=== PATIENT | female | born 1995 | race American Indian/Alaskan Native ===

== ENCOUNTER 2017-03-20 23:49 | Emergency (ER) | payer MEDICAID ==
[2017-03-21 00:59] LABS: Hematocrit 38.7 % (30.3-42.9); Hemoglobin 12.6 gm/dl (10.1-14.3); Mean Corpuscular HGB Conc 33 % (30-34); Mean Corpuscular Hemoglobin 28 pg (28-32); Mean Corpuscular Volume 85 fl (79-97); Platelet Count 365 K/mm3 (140-440); Red Blood Count 4.55 M/mm3 (3.65-5.03); Red Cell Distribution Width 13.9 % (13.2-15.2); White Blood Count 5.4 K/mm3 (4.5-11.0)
[2017-03-21 01:16] LABS: Anion Gap 20 mmol/L; Blood Urea Nitrogen 8 mg/dL (7-17); Calcium 9.2 mg/dL (8.4-10.2); Carbon Dioxide 24 mmol/L (22-30); Chloride 99.2 mmol/L (98-107); Glucose 84 mg/dL (65-100); Potassium 3.7 mmol/L (3.6-5.0); Sodium 139 mmol/L (137-145)
[2017-03-21 03:31] LABS: Blastocytes % (Manual) 0 %; Diff Status Complete; Platelet Estimate Consistent w Auto; RBC Morphology Normal
--- NOTE | 2017-03-21 03:47 | Emergency Department Report ---
ED Chest Pain HPI - General Chief Complaint: Chest Pain Stated Complaint: CHEST PAIN Time Seen by Provider: 03/21/17 03:47 Source: patient Mode of arrival: Ambulatory Limitations: No Limitations - History of Present Illness Initial Comments: Patient here complaining of chest pain since yesterday. She states that she started having left-sided chest pain at 8-10 that feels sharp does radiate into her back. She states she has shortness of breath with dizziness and sweating. Stated that she felt like her heart was racing. Patient was told in her chest and rocking in triage area. Denies any history of PE or DVT personally or in her family. Last menstrual period was 03/21/2017. Denies taking any over-the- counter medication for pain. Patient is on control and she last had C- section in April 2016. She says she had a history of high blood pressure with her but her blood pressure is stable at present. Denies any recent travel long distance, denies smoking and, denies any recent surgery. Denies any nausea or vomiting. Denies any urinary burning frequency or urgency.Denies any lower back pain. MD Complaint: chest pain -: Last night Onset: during rest Pain Location: left chest Pain Radiation: back Severity: severe Severity scale (0 -10): 8 Quality: aching, sharp Consistency: intermittent Improves With: nothing Worsens With: nothing Context: other (unknown) re: denies: nausea, vomting, diaphoresis, dyspnea, sense of impending doom Other Symptoms: palpitations. denies: cough, fever, syncope, rash, acid taste in mouth, leg swelling, burping Treatments Prior to Arrival: none Aspirin use within the Past 7 Days: (0) No - Related Data On Oral Contraceptives: Yes (Nexplanon) Previous Rx's Medication Instructions Recorded Last Taken Type Naproxen [Naprosyn] 500 mg PO BID PRN #10 tablet 03/21/17 Unknown Rx Allergies Allergy/AdvReac Type Severity Reaction Status Date / Time No Known Allergies Allergy Verified 03/21/17 03:07 Heart Score - HEART Score History: Slightly suspicious EKG: Normal Age: < 45 Risk factors: No known risk factors Troponin: < normal limit HEART Score: 0 - Critical Actions Critical Actions: 0-3 pts:0.9-1.7%risk of adverse cardiac event.Candidate for discharge ED Review of Systems ROS: Stated complaint: CHEST PAIN Other details as noted in HPI Comment: All other systems reviewed and negative Constitutional: denies: chills, diaphoresis, fever, malaise, weakness Respiratory: no symptoms reported Cardiovascular: chest pain, palpitations. denies: edema, syncope Gastrointestinal: denies: abdominal pain, nausea, vomiting, diarrhea, constipation Genitourinary: denies: urgency, dysuria, frequency, hematuria, discharge, abnormal menses, dyspareunia Musculoskeletal: back pain. denies: joint swelling, arthralgia, myalgia Skin: denies: rash Neurological: denies: headache, weakness, numbness, paresthesias, confusion, abnormal gait, vertigo Psychiatric: denies: anxiety ED Past Medical Hx - Past Medical History Previous Medical History?: Yes Hx Hypertension: Yes (states it is ok now no meds) Hx Heart Attack/AMI: No Hx Congestive Heart Failure: No Hx Diabetes: No Hx Deep Vein Thrombosis: No Hx Renal Disease: No Hx Sickle Cell Disease: No Hx Seizures: No Hx Asthma: No Hx COPD: No Hx HIV: No - Surgical History Past Surgical History?: Yes Additional Surgical History: c section, has Nexplanon for the last 9 months - Family History Family history: no significant - Social History Smoking Status: Never Smoker Substance Use Type: None Other Social History: Patient lives with family - Medications Home Medications: Home Medications Medication Instructions Recorded Confirmed Last Taken Type Naproxen [Naprosyn] 500 mg PO BID PRN #10 tablet 03/21/17 Unknown Rx ED Physical Exam - General Limitations: No Limitations General appearance: alert, in no apparent distress - Head Head exam: Present: atraumatic, normocephalic, normal inspection - Eye Eye exam: Present: normal appearance, PERRL, EOMI. Absent: scleral icterus, conjunctival injection, periorbital swelling, periorbital tenderness Pupils: Present: normal accommodation - ENT ENT exam: Present: normal exam, normal orophraynx, mucous membranes moist, TM's normal bilaterally, normal external ear exam - Neck Neck exam: Present: normal inspection, full ROM. Absent: tenderness, meningismus, lymphadenopathy - Respiratory Respiratory exam: Present: normal lung sounds bilaterally, chest wall tenderness (positive left chest wall pain). Absent: respiratory distress, wheezes, rales, rhonchi, stridor, accessory muscle use, decreased breath sounds , prolonged expiratory - Cardiovascular Cardiovascular Exam: Present: regular rate, normal rhythm, normal heart sounds - GI/Abdominal GI/Abdominal exam: Present: soft, normal bowel sounds. Absent: distended, tenderness, guarding, rebound, rigid - Extremities Exam Extremities exam: Present: normal inspection, full ROM, normal capillary refill. Absent: tenderness, pedal edema, joint swelling, calf tenderness - Back Exam Back exam: Present: normal inspection, full ROM. Absent: tenderness, CVA tenderness (R), CVA tenderness (L), muscle spasm, paraspinal tenderness, vertebral tenderness, rash noted - Neurological Exam Neurological exam: Present: alert, oriented X3, normal gait, reflexes normal. Absent: motor sensory deficit - Psychiatric Psychiatric exam: Present: normal affect, normal mood - Skin Skin exam: Present: warm, dry, intact, normal color. Absent: rash ED Course Vital Signs 03/21/17 03/21/17 00:09 03:16 Temperature 98.7 F Pulse Rate 86 79 Respiratory 20 18 Rate Blood Pressure 122/81 Blood Pressure 135/89 [Left] O2 Sat by Pulse 100 99 Oximetry - Reevaluation(s) Reevaluation #1: 03/21/17 03:57 She was stable, troponin is negative, no acute changes in EKG. Chest x-ray stable. based on PERC rule patient is on control so d-dimer ordered. Reevaluation #2: 03/21/17 05:35 Patient stable. Awaiting D dimer Reevaluation #3: 03/21/17 06:23 Patient is stable and no chest pain at present. She says she is ready to go home. D-dimer is negative CHIDI score - Chidi Score Age > 65: (0) No Aspirin use within the Past 7 Days: (0) No 3 or more CAD Risk Factors: (0) No 2 or more Angina events in past 24 hrs: (0) No Known CAD with more than 50% Stenosis: (0) No Elevated Cardiac Markers: (0) No ST Deviation Greater than 0.5mm: (0) No CHIDI Score: 0 ED Medical Decision Making - Lab Data Result diagrams: 03/21/17 00:14 03/21/17 00:14 Lab Results 03/21/17 03/21/17 03/21/17 Range/Units 00:14 00:14 00:18 WBC 5.4 (4.5-11.0) K/mm3 RBC 4.55 (3.65-5.03) M/mm3 Hgb 12.6 (10.1-14.3) gm/dl Hct 38.7 (30.3-42.9) % MCV 85 (79-97) fl MCH 28 (28-32) pg MCHC 33 (30-34) % RDW 13.9 (13.2-15.2) % Plt Count 365 (140-440) K/mm3 Add Manual Diff Complete Total Counted 100 Seg Neuts % (Manual) 35.0 L (40.0-70.0) % Band Neutrophils % 0 % Lymphocytes % (Manual) 56.0 H (13.4-35.0) % Reactive Lymphs % (Man) 0 % Monocytes % (Manual) 5.0 (0.0-7.3) % Eosinophils % (Manual) 2.0 (0.0-4.3) % Basophils % (Manual) 2.0 H (0.0-1.8) % Metamyelocytes % 0 % Myelocytes % 0 % Promyelocytes % 0 % Blast Cells % 0 % Nucleated RBC % Not Reportable Seg Neutrophils # Man 1.9 (1.8-7.7) K/mm3 Band Neutrophils # 0.0 K/mm3 Lymphocytes # (Manual) 3.0 (1.2-5.4) K/mm3 Abs React Lymphs (Man) 0.0 K/mm3 Monocytes # (Manual) 0.3 (0.0-0.8) K/mm3 Eosinophils # (Manual) 0.1 (0.0-0.4) K/mm3 Basophils # (Manual) 0.1 (0.0-0.1) K/mm3 Metamyelocytes # 0.0 K/mm3 Myelocytes # 0.0 K/mm3 Promyelocytes # 0.0 K/mm3 Blast Cells # 0.0 K/mm3 WBC Morphology Not Reportable Hypersegmented Neuts Not Reportable Hyposegmented Neuts Not Reportable Hypogranular Neuts Not Reportable Smudge Cells Not Reportable Toxic Granulation Not Reportable Toxic Vacuolation Not Reportable Dohle Bodies Not Reportable Pelger-Huet Anomaly Not Reportable Mike Rods Not Reportable Platelet Estimate Consistent w auto Clumped Platelets Not Reportable Plt Clumps, EDTA Not Reportable Large Platelets Not Reportable Giant Platelets Not Reportable Platelet Satelliting Not Reportable Plt Morphology Comment Not Reportable RBC Morphology Normal Dimorphic RBCs Not Reportable Polychromasia Not Reportable Hypochromasia Not Reportable Poikilocytosis Not Reportable Anisocytosis Not Reportable Microcytosis Not Reportable Macrocytosis Not Reportable Spherocytes Not Reportable Pappenheimer Bodies Not Reportable Sickle Cells Not Reportable Target Cells Not Reportable Tear Drop Cells Not Reportable Ovalocytes Not Reportable Helmet Cells Not Reportable [place] Bodies Not Reportable Spicer Rings Not Reportable Warren Cells Not Reportable Bite Cells Not Reportable Crenated Cell Not Reportable Elliptocytes Not Reportable Acanthocytes (Spur) Not Reportable Rouleaux Not Reportable Hemoglobin C Crystals Not Reportable Schistocytes Not Reportable Malaria parasites Not Reportable Christian Bodies Not Reportable Hem Pathologist Commnt No Sodium 139 (137-145) mmol/L Potassium 3.7 (3.6-5.0) mmol/L Chloride 99.2 (98-107) mmol/L Carbon Dioxide 24 (22-30) mmol/L Anion Gap 20 mmol/L BUN 8 (7-17) mg/dL Creatinine 0.5 L (0.7-1.2) mg/dL Estimated GFR > 60 ml/min BUN/Creatinine Ratio 16.00 % Glucose 84 (65-100) mg/dL Calcium 9.2 (8.4-10.2) mg/dL Troponin T < 0.010 (0.00-0.029) ng/mL HCG, Qual Negative (Negative) - EKG Data -: EKG Interpreted by Me (by attending physician) EKG shows normal: sinus rhythm Rate: normal (77 bpm) - EKG Data Interpretation: no acute changes - Radiology Data Radiology results: report reviewed Chest x-ray reveals no acute cardiopulmonary processes - Medical Decision Making ED course: This is a 21-year-old female who present to the emergency room with left sided chest pain. She said she had some shortness of breath. Her chest pain had subsided since she's been in the emergency room. She had chest x-ray which revealed no "acute cardiopulmonary findings. PerC rule could not rule out PE because patient is on control therefore suggestion of d-dimer which was within normal limits. The patient EKG without any acute findings. Troponin negative, BMP within normal limits CBC within normal limits except lymphocytes at 56 and his official at 2.0 mildly elevated and neutrophils of 35 which is mildly decreased. Serum was negative urinalysis revealed patient with large amount of blood in her urine but patient is currently on her menses. Based on my physical findings patient with costochondritis and this was related to her and she voiced understanding. Stress with her that she has a low heart score and her CHIDI score was 0. Diagnostic/labs: Chest x-ray negative for cardiopulmonary processes, d-dimer negative, test is negative, BMP stable, CBC is stable and a urinalysis is stable except that patient is on her menses so she has large amount of blood in her urine. Assessment/plan: 1. Atypical chest pain 2. Costochondritis Findings were discussed with patient and patient's CBC discharged home with prescription for naproxen for chest wall inflammation. She voices understanding of diagnosis and treatment plan and to follow up with her primary care physician and if she does not have one she can follow up with [facility]. - Differential Diagnosis ACS, PNA, PE, Costrocondritis Critical care attestation.: If time is entered above; I have spent that time in minutes in the direct care of this critically ill patient, excluding procedure time. ED Disposition Clinical Impression: Costochondritis, acute, Atypical chest pain Disposition: DC-01 TO HOME OR SELFCARE Is pt being admited?: No Does the pt Need Aspirin: No Condition: Stable Instructions: Chest Pain (ED), Costochondritis (ED) Additional Instructions: Please return to the emergency room if he developed chest pain and/or shortness of breath. These follow-up with your primary care physician if you do not have one please follow up with outside Medical Center Increasing her fluid intake Take naproxen as needed for inflammation to chest wall. referral to cardiology for further evaluation. Prescriptions: Naproxen [Naprosyn] 500 mg PO BID PRN #10 tablet PRN Reason: CHEST WALL PAIN Referrals: SHAI GLORIA MD [Primary Care Provider] - 03/22/17 [facility] [Outside] - 03/22/17 KARELY SAPP MD [Staff Physician] - 03/23/17 Forms: Work/School Release Form(ED)
--- NOTE | 2017-03-21 04:15 | XRay Report ---
FINAL REPORT PROCEDURE: XR CHEST ROUTINE 2V TECHNIQUE: PA and lateral chest radiographs were obtained. CPT 87007 HISTORY: CP COMPARISON: No prior studies are available for comparison. FINDINGS: Heart: Normal. Mediastinum/Vessels: Normal. Lungs/Pleural space: Normal. Bony thorax: No acute osseous abnormality. Other: IMPRESSION: Normal examination.
[2017-03-21 05:18] LABS: Bacteria,Urine 1+ /HPF (Negative); Bilirubin,Urine NEG (Negative); Blood,Urine LG (Negative); Ketones,Urine NEG (Negative); Leukocyte Esterase,Urine NEG (Negative); Mucus,Urine 3+ /HPF; Nitrite,Urine NEG (Negative)
[2017-03-21 05:21] LABS: RBC,Urine > 182.0 /HPF (0.0-6.0)
[2017-03-21 06:52] VITALS: BP 109/71
== END 2017-03-21 06:51 | disposition home or self-care (01) ==
LOC: ED 23:49
DX: M94.0 Chondrocostal junction syndrome [Tietze] (principal); I10 Essential (primary) hypertension
CPT/HCPCS: 36415; 71020; 80048; 81001; 84484; 84703; 85007; 85025; 85379; 93005; 93010; 99285

== ENCOUNTER 2017-08-31 16:52 | Emergency (ER) | payer MEDICAID ==
[2017-08-31 17:12] VITALS: BP 119/55
[2017-08-31 17:38] LABS: Hematocrit 38.1 % (30.3-42.9); Hemoglobin 12.6 gm/dl (10.1-14.3); Mean Corpuscular HGB Conc 33 % (30-34); Mean Corpuscular Hemoglobin 28 pg (28-32); Mean Corpuscular Volume 85 fl (79-97); Platelet Count 434 K/mm3 (140-440); Red Blood Count 4.49 M/mm3 (3.65-5.03); Red Cell Distribution Width 13.4 % (13.2-15.2)
[2017-08-31 17:44] LABS: Basophils # (Auto) 0.1 K/mm3 (0.0-0.1); Eosinophils # (Auto) 0.1 K/mm3 (0.0-0.4); Lymphocytes # (Auto) 3.4 K/mm3 (1.2-5.4); Lymphocytes % (Auto) 50.3 % (13.4-35.0); Monocytes # (Auto) 0.2 K/mm3 (0.0-0.8); Monocytes % (Auto) 2.7 % (0.0-7.3)
[2017-08-31 17:56] LABS: Bilirubin,Urine NEG (Negative); Blood,Urine LG (Negative); Color,Urine Yellow (Yellow); Mucus,Urine FEW /HPF; Nitrite,Urine NEG (Negative); Renal Epithelial Cells,Urine 1 /LPF
[2017-08-31 17:58] LABS: RBC,Urine > 182.0 /HPF (0.0-6.0)
--- NOTE | 2017-08-31 21:14 | Ultrasound Report ---
FINAL REPORT PROCEDURE: US OB TRANSVAGINAL and transabdominal TECHNIQUE: Real-time transabdominal and transvaginal sonography was performed. HISTORY: vaginal bleeding COMPARISON: No prior studies are available for comparison. FINDINGS: Uterus measures 10.5 x 3.6 x 5.2 centimeters. Endometrium measures 9 millimeters in thickness. No intrauterine gestational sac is seen. Cervix: Normal. Right Ovary: Normal. Left Ovary: Not visualized. No free fluid or adnexal mass is identified. IMPRESSION: No intrauterine gestational sac is identified. Cannot exclude early gestation or ectopic . Recommend clinical and sonographic follow-up. PROCEDURE: TECHNIQUE: HISTORY: COMPARISON: FINDINGS: IMPRESSION:
== END 2017-09-01 02:18 | disposition left against medical advice (07) ==
LOC: ED 16:52
DX: N93.9 Abnormal uterine and vaginal bleeding, unspecified (principal); Z53.21 Procedure and treatment not carried out due to patient leaving prior to being seen by health care provider
CPT/HCPCS: 36415; 76801; 76817; 81001; 84702; 85025; 86850; 86900; 86901

== ENCOUNTER 2018-01-31 10:36 | Emergency (ER) | payer MEDICAID ==
[2018-01-31 10:43] VITALS: BP 146/81
[2018-01-31 11:03] LABS: Basophils # (Auto) 0.1 K/mm3 (0.0-0.1); Basophils % (Auto) 1.2 % (0.0-1.8); Eosinophils % (Auto) 0.6 % (0.0-4.3); Hemoglobin 12.8 gm/dl (10.1-14.3); Lymphocytes # (Auto) 2.3 K/mm3 (1.2-5.4); Lymphocytes % (Auto) 52.8 % (13.4-35.0); Mean Corpuscular HGB Conc 33 % (30-34); Mean Corpuscular Hemoglobin 28 pg (28-32); Mean Corpuscular Volume 86 fl (79-97); Monocytes # (Auto) 0.2 K/mm3 (0.0-0.8); Monocytes % (Auto) 3.8 % (0.0-7.3); Platelet Count 344 K/mm3 (140-440); Red Blood Count 4.55 M/mm3 (3.65-5.03); Red Cell Distribution Width 13.1 % (13.2-15.2)
[2018-01-31 11:29] LABS: BUN/Creatinine Ratio 10; Blood Urea Nitrogen 7 mg/dL (7-17); Calcium 9.7 mg/dL (8.4-10.2); Hemolysis Index 3
== END 2018-01-31 11:05 | disposition left against medical advice (07) ==
LOC: ED 10:36
DX: R06.4 Hyperventilation (principal); Z53.21 Procedure and treatment not carried out due to patient leaving prior to being seen by health care provider
CPT/HCPCS: 36415; 80048; 85025; G0480; 80320

== ENCOUNTER 2018-02-09 15:10 | Outpatient (CLI) | payer OTHER | END 2018-02-09 15:11 | disposition home or self-care (01) | LOC: LABHHL 15:10 | PROVIDERS: ATTEND Surgery | DX: N63.20 Unspecified lump in the left breast, unspecified quadrant (principal); F17.210 Nicotine dependence, cigarettes, uncomplicated; D64.9 Anemia, unspecified; Z82.49 Family history of ischemic heart disease and other diseases of the circulatory system; Z83.3 Family history of diabetes mellitus | CPT/HCPCS: 88305 ==

== ENCOUNTER 2018-12-27 17:09 | Outpatient (CLI) | payer MEDICAID ==
[2018-12-27] MEDS ORDERED: LACTATED RINGERS 500 ML IV ONE (18:25)
[2018-12-27 19:00] LABS: Bacteria,Urine 4+ /HPF (Negative); Bilirubin,Urine NEG (Negative); Blood,Urine NEG (Negative); Color,Urine Yellow (Yellow); Mucus,Urine FEW /HPF
[2018-12-27] MEDS ORDERED: ROCEPHIN IM ONE (20:01)
[2018-12-27] MEDS ORDERED: XYLOCAINE 1% MPF 5 mL INFILTRATI ONE (20:01)
[2018-12-27] MEDS ORDERED: XYLOCAINE TOPICAL 2% 30ML TP ONE (20:11)
[2018-12-27 21:07] VITALS: BP 109/65
== END 2018-12-27 21:17 | disposition home or self-care (01) ==
LOC: TRG 17:09
PROVIDERS: ATTEND Obstetrics & Gynecology
DX: O26.893 Other specified pregnancy related conditions, third trimester (principal); R10.2 Pelvic and perineal pain; R39.89 Other symptoms and signs involving the genitourinary system; Z3A.29 29 weeks gestation of pregnancy
CPT/HCPCS: 59025; 81001; 87086; 96372; J0696

== ENCOUNTER 2019-02-16 12:56 | Outpatient (CLI) | payer MEDICAID ==
[2019-02-16 15:33] VITALS: BP 104/66
[2019-02-16] MEDS ORDERED: LACTATED RINGERS 500 ML IV ONE (15:34)
[2019-02-16 16:33] LABS: Bacteria,Urine 2+ /HPF (Negative); Bilirubin,Urine NEG (Negative); Blood,Urine NEG (Negative); Color,Urine Yellow (Yellow); Mucus,Urine FEW /HPF; Protein,Urine <15 mg/dL mg/dL (Negative); Urobilinogen,Urine < 2.0 mg/dL (<2.0)
[2019-02-16] MEDS ORDERED: LACTATED RINGERS 1,000 ML IV ONE (16:35)
== END 2019-02-16 19:17 | disposition home or self-care (01) ==
LOC: TRG 12:56
PROVIDERS: ATTEND Obstetrics & Gynecology
DX: O60.03 Preterm labor without delivery, third trimester (principal); Z3A.36 36 weeks gestation of pregnancy; Z87.891 Personal history of nicotine dependence
CPT/HCPCS: 81001; 96360; J7120

== ENCOUNTER 2019-03-06 05:05 | Inpatient (IN) | payer MEDICAID ==
[2019-03-06] MEDS ORDERED: BICITRA PO ONE (06:07)
[2019-03-06] MEDS ORDERED: REGLAN IV ONE (06:07)
[2019-03-06] MEDS ORDERED: PEPCID IV ONE ×2 (06:07→08:57)
[2019-03-06] MEDS: LACTATED RINGERS 1,000 ML IV SCH ×2 (06:23→07:00)
[2019-03-06 06:34] LABS: Basophils # (Auto) 0.1 K/mm3 (0.0-0.1); Basophils % (Auto) 1.3 % (0.0-1.8); Eosinophils % (Auto) 0.9 % (0.0-4.3); Hematocrit 32.7 % (30.3-42.9); Lymphocytes # (Auto) 1.9 K/mm3 (1.2-5.4); Lymphocytes % (Auto) 39.6 % (13.4-35.0); Mean Corpuscular HGB Conc 31 % (30-34); Mean Corpuscular Volume 84 fl (79-97); Monocytes # (Auto) 0.4 K/mm3 (0.0-0.8); Monocytes % (Auto) 7.8 % (0.0-7.3); Platelet Count 409 K/mm3 (140-440); Red Blood Count 3.88 M/mm3 (3.65-5.03)
[2019-03-06 06:39] LABS: Red Cell Distribution Width 22.3 % (13.2-15.2)
[2019-03-06] MEDS ORDERED: ANCEF/STERILE WATER 2 GM/20 ML 2 GM/20 ML SYRINGE IV NR (07:00)
[2019-03-06] MEDS ORDERED: PITOCin/NS 20 UNIT/1000ML DRIP 20 UNITS/1,000 ML BAG IV SCH ×2 (07:00→11:00)
[2019-03-06] MEDS ORDERED: ceFAZolin 2 GM in NACL 0.9% 100 ML IV ONE (07:18)
--- NOTE | 2019-03-06 07:31 | Anesthesia Consultation ---
Anesthesia Consult and Med Hx Date of service: 03/06/19 - Airway Anesthetic Teeth Evaluation: Good ROM Head & Neck: Adequate Mental/Hyoid Distance: Adequate Mallampati Class: Class II Intubation Access Assessment: Good - Pulmonary Exam CTA: Yes - Cardiac Exam Cardiac Exam: RRR - Pre-Operative Health Status ASA Pre-Surgery Classification: ASA2 Proposed Anesthetic Plan: Spinal - Pulmonary Hx Asthma: No COPD: No Hx Pneumonia: No - Cardiovascular System Hx Hypertension: No Hx Coronary Artery Disease: No Hx Heart Attack/AMI: No Hx Angina: No Hx Cardia Arrhythmia: No Hx Heart Murmur: No - Central Nervous System Hx Seizures: No Hx Psychiatric Problems: No - Endocrine Hx Renal Disease: No Hx End Stage Renal Disease: No Hx Hypothyroidism: No Hx Hyperthyroidism: No - Hematic Hx Anemia: No Hx Sickle Cell Disease: No - Other Systems Hx Alcohol Use: No
--- NOTE | 2019-03-06 07:32 | Anesthesia Day of Surgery ---
Anesthesia Day of Surgery - Day of Surgery Patient Examined: Yes Patient H&P Reviewed: Yes Patient is NPO: Yes
--- NOTE | 2019-03-06 07:47 | History and Physical Report ---
History of Present Illness Date of examination: 03/06/19 Date of admission: 03/06/19 05:05 Chief complaint: scheduled repeat History of present illness: This is a 23 yo at 39 weeks here for repeat . She is a patient of [facility]. She sustained obesity during this . 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 Patient denies any outbreaks. GBS neg` Past History Past Medical History: no pertinent history Past Surgical History: section [employer] History: herpes Family/Genetic History: none Social history: single. denies: smoking, alcohol abuse, prescription drug abuse - Obstetrical History Expected Date of Delivery: 03/13/19 Actual Gestation: 39 Week(s) 0 Day(s) : 3 Para: 1 Hx # Term Pregnancies: 1 Number of Pregnancies: 0 Spontaneous Abortions: 1 Induced : 0 Number of Living Children: 1 Medications and Allergies Allergies Allergy/AdvReac Type Severity Reaction Status Date / Time aloe vera AdvReac Severe Itching Verified 02/16/19 15:34 Home Medications Medication Instructions Recorded Confirmed Last Taken Type valACYclovir [Valtrex] 500 mg PO BID 12/27/18 12/27/18 12/27/18 History Active Meds: Active Medications Oxytocin/Sodium Chloride (Pitocin/Ns 20 Unit/1000ml Drip) 20 units in 1,000 mls @ 0 mls/hr IV TITR MANNY Lactated Ringer's (Lactated Ringers) 1,000 mls @ 2,250 mls/hr IV PREOP MANNY Stop: 03/07/19 07:27 Last Admin: 03/06/19 07:00 Dose: 2,250 mls/hr Documented by: Review of Systems All systems: negative - Vital Signs Vital signs: Vital Signs Pulse BP 93 H 114/64 03/06/19 05:48 03/06/19 05:48 Temp Pulse Resp BP Pulse Ox 93 H 114/64 03/06/19 05:48 03/06/19 05:48 - Physical Exam Breasts: Positive: normal Cardiovascular: Regular rate, Normal S1 Lungs: Positive: Clear to auscultation, Normal air movement Abdomen: Positive: normal appearance, soft, normal bowel sounds. Negative: distention, tenderness, guarding Genitourinary (Female): Positive: normal external genitalia, normal perenium Vagina: Positive: normal moisture Uterus: Positive: normal size, enlarged, normal contour Anus/Rectum: Positive: normal perianal skin Extremities: Positive: normal. Negative: tenderness Deep Tendon Reflex Grade: Normal +2 - Obstetrical FHR: category 1 Results Result Diagrams: 03/06/19 05:45 Abnormal lab results 03/06/19 Range/Units 05:45 Hgb 10.0 L (10.1-14.3) gm/dl MCH 26 L (28-32) pg RDW 22.3 H (13.2-15.2) % Lymph % (Auto) 39.6 H (13.4-35.0) % [place] % (Auto) 7.8 H (0.0-7.3) % All other labs normal. Assessment and Plan A/P HD#1 IUP 39+0 weeks GBS neg obesity hx of previous csec schedueld repeat discussed r/b/a of repeat which include but not limited to bleeding infection, damage to pelvic and non pelvic will proceed with repeat
[2019-03-06] MEDS ORDERED: DEXMEDETOMIDINE IV ONE (08:04)
[2019-03-06] MEDS ORDERED: BICITRA ONE (08:56)
[2019-03-06] MEDS ORDERED: REGLAN ONE ×2 (08:56→08:57)
[2019-03-06] MEDS ORDERED: ZOFRAN ONE (09:30)
[2019-03-06] MEDS ORDERED: NACL 0.9% IR ONE (09:35)
[2019-03-06] MEDS ORDERED: WATER FOR IRRIG STERILE IR ONE (09:35)
[2019-03-06] MEDS ORDERED: ANUCORT-HC PR PRN (10:00)
[2019-03-06] MEDS ORDERED: TORADOL ONE (10:11)
[2019-03-06] MEDS ORDERED: NARCAN 0.4 MG/1 ML IV PRN ×3 (10:27→11:00)
[2019-03-06] MEDS ORDERED: PHENERGAN PR PRN ×2 (10:38→11:00)
[2019-03-06] MEDS ORDERED: ZOFRAN IV PRN ×2 (10:38→11:00)
--- NOTE | 2019-03-06 10:38 | Post Anesthesia Evaluation ---
- Post Anesthesia Evaluation Patient Participated: Yes Airway Patent: Yes Stable Respiratory Function: Yes Nausea/Vomiting: No Temp > 96.8F: Yes Pain Manageable: Yes Adequeate Hydration: Yes Anesthesia Complications: No Block Receding Appropriately: Yes Patient on Ventilator: No
--- NOTE | 2019-03-06 10:42 | Operative Report ---
Operative Report Operative Report: DATE OF OPERATION: 03/06/19 PREOPERATIVE DIAGNOSES: 1. Prior section. 2. Declines vaginal after . 3. A 39 weeks gestation. 4. Obesity POSTOPERATIVE DIAGNOSES: 1.-4 huey 5. nuchal cord x1 6. scar tissue OPERATION PERFORMED: Repeat low transverse ; removal of scar tissue . SURGEON: Iqra Camarillo MD ANESTHESIA: Spinal. ESTIMATED BLOOD LOSS: 300 mL. FINDINGS: A viable male weighing 7 pounds 10 oz Apgars of 6 and 9. COMPLICATIONS: None. DISPOSITION: Stable. DESCRIPTION OF OPERATION: After informed consent was obtained, the patient was brought back to the operative suite where adequate spinal anesthesia was obtained. The patient was then placed in the dorsal supine position and prepped and draped in the sterile fashion. A repeat Pfannenstiel skin incision was made with a blade and carried down through the subcutaneous tissues to the fascia, which was extended in the transverse fascia with Bonds scissors. The fascial incision was then dissected off the rectus muscles both bluntly and sharply. The rectus muscle was in the midline. The peritoneum was entered bluntly. The peritoneal incision was then extended both superiorly and inferiorly with good visualization of the underlying bowel and bladder. The bladder blade was placed, and the vesicouterine fascia was incised to create a bladder flap in a low transverse position. This was developed digitally. A low transverse uterine incision was made with the blade and carried down through the layers of the uterus until membranes bulged through the incision. The uterine incision was then extended digitally. Hand was placed inside the pelvis, and the head was brought up out of the pelvis and delivered atraumatically with gentle fundal pressure. Prior to the head being delivered, actually through the skin, the sound of the baby starting to cry was noted. After the head was delivered, the mouth and nares were aggressively bulb suctioned. Remainder of the infant was delivered, and the was passed to the awaiting nursing staff for additional care. Cord was doubly clamped and cut and cord blood was obtained. The placenta was then manually extracted, and the uterus was exteriorized. The uterus was cleaned of remaining clot. The uterine incision was readily identified and closed in two layers, first one with running locking followed by second imbricating layer of 0 Vicryl. The vesicouterine fascia was then reapproximated with 2-0 Vicryl. The adnexa were within normal limits. The uterus was placed back inside the pelvis. Copious irrigation and inspection of the incision was satisfactory. The peritoneum was then closed with 2-0 Vicryl in a running fashion. The fascia was closed with 1 Vicryl from one angle to the next. Subcutaneous tissues were copiously irrigated, and final bleeders were cauterized. The incision was then reapproximated with Francisco needle
[2019-03-06] MEDS ORDERED: SODIUM CHLORIDE FLUSH SYRINGE 10 ML IV NR (11:00)
[2019-03-06] MEDS ORDERED: PHENERGAN PO PRN (11:00)
[2019-03-06] MEDS ORDERED: TUCKS PAD TP PRN (11:00)
[2019-03-06] MEDS ORDERED: D5LR 1,000 ML IV SCH (11:00)
[2019-03-06] MEDS ORDERED: MORPHINE IV PRN ×2 (11:00)
[2019-03-06] MEDS ORDERED: MYLICON PO PRN (11:00)
[2019-03-06] MEDS ORDERED: SODIUM CHLORIDE FLUSH SYRINGE 10 ML IV PRN (11:00)
[2019-03-06] MEDS ORDERED: TORADOL IV PRN (11:00)
[2019-03-06] MEDS ORDERED: LANSINOH TP PRN (11:00)
[2019-03-06] MEDS ORDERED: TYLENOL PR PRN (11:00)
[2019-03-06] MEDS: TORADOL IV PRN ×2 (12:58→18:36)
[2019-03-06] MEDS ORDERED: BOOSTRIX IM ONE (18:42)
[2019-03-06] MEDS ORDERED: MILK OF MAGNESIA PO PRN (22:00)
[2019-03-06] MEDS ORDERED: SENOKOT PO PRN (22:00)
[2019-03-06 23:02] LABS: Hematocrit 27.2 % (30.3-42.9); Hemoglobin 8.9 gm/dl (10.1-14.3)
[2019-03-07] MEDS: TORADOL IV PRN (00:14)
[2019-03-07] MEDS: PERCOCET 5/325 PO PRN (01:25)
[2019-03-07] MEDS: IBUPROFEN PO PRN ×3 (01:25→17:13)
[2019-03-07] MEDS: NORCO 5/325 PO PRN ×3 (04:21→17:14)
[2019-03-07] MEDS ORDERED: BOOSTRIX IM ONE (06:00)
--- NOTE | 2019-03-07 08:36 | Progress Note ---
Assessment and Plan A: POD1 s/p rLTCS Anemia Vital signs stable P: Continue current care. Anticipate discharge to home on POD3 Initiate iron supplementation Subjective - Subjective Date of service: 03/07/19 Principal diagnosis: Post-op Interval history: Pt is a 23 yo on post-op day 1 s/p repeat LTCS. Patient reports: appetite normal, voiding normally, pain well controlled, flatus, ambulating normally : doing well, nursing well, bottle feeding Objective - Vital Signs Latest vital signs: Vital Signs Temp Pulse Resp BP BP Pulse Ox 03/07/19 04:21 18 03/07/19 01:25 18 03/07/19 00:14 18 03/07/19 00:00 98.6 F 77 18 114/78 03/06/19 19:47 98.0 F 18 123/74 03/06/19 18:36 20 03/06/19 16:36 97.6 F 68 16 132/78 99 03/06/19 14:15 20 03/06/19 13:28 20 03/06/19 12:58 20 03/06/19 11:55 97.3 F L 61 20 124/71 99 03/06/19 11:15 57 L 18 100/59 03/06/19 11:00 60 16 101/55 98 03/06/19 10:45 70 18 94/53 96 03/06/19 10:40 79 17 103/53 96 03/06/19 10:36 97.7 F 77 17 102/52 96 Intake and Output 03/06/19 03/07/19 03/07/19 23:59 07:59 15:59 Intake Total 300 300 Output Total 2000 Balance -1700 300 Intake: Intake, Free Water 300 300 Output: Urine 2000 Indwelling Catheter 1600 Void 400 Other: Total, Output Amount 400 # Voids Void 1 - Exam Cardiovascular: Present: Regular rate, Normal S1, Normal S2, No murmurs Lungs: Present: Clear to auscultation, Normal air movement Abdomen: Present: normal appearance, soft, normal bowel sounds Uterus: Present: normal, firm, fundal height at umbilicus Extremities: Present: normal Incision: Present: normal, dry, intact - Labs Labs: Abnormal lab results 03/06/19 Range/Units 22:53 Hgb 8.9 L (10.1-14.3) gm/dl Hct 27.2 L (30.3-42.9) %
[2019-03-07] MEDS ORDERED: M-M-R II VACCINE SUB-Q ONE (11:00)
[2019-03-07] MEDS: PRENATAL VITAMIN PO SCH (11:21)
[2019-03-07] MEDS: FEOSOL PO SCH (11:21)
[2019-03-08] MEDS: NORCO 5/325 PO PRN ×2 (06:22→06:23)
--- NOTE | 2019-03-08 08:05 | Progress Note ---
Assessment and Plan A: POD2 s/p rLTCS Anemia Vital signs stable P: Continue current care. Anticipate discharge to home on POD3 Continue iron supplementation Subjective - Subjective Principal diagnosis: Post-op Interval history: Pt is a 23 yo on post-op day 2 s/p repeat LTCS. She reports a current genital HSV outbreak. Patient reports: appetite normal, voiding normally, pain well controlled, flatus, ambulating normally [place]: doing well, nursing well, bottle feeding (supplementary) Objective - Vital Signs Latest vital signs: Vital Signs Temp Pulse Resp BP BP Pulse Ox 03/08/19 06:23 18 03/08/19 06:22 18 03/08/19 00:30 98.7 F 64 19 102/78 03/07/19 16:02 98.3 F 90 18 108/62 97 03/07/19 08:35 97.8 F 73 18 103/53 98 Intake and Output 03/07/19 03/08/19 03/08/19 23:59 07:59 15:59 Other: # Voids Void 1 - Exam Cardiovascular: Present: Regular rate, Normal S1, Normal S2, No murmurs Lungs: Present: Clear to auscultation, Normal air movement Abdomen: Present: normal appearance, soft, normal bowel sounds Uterus: Present: normal, firm, fundal height below umbilicus Extremities: Present: normal Incision: Present: normal, dry, intact
--- NOTE | 2019-03-08 08:08 | Discharge Summary ---
Providers - Providers Date of Admission: 03/06/19 05:05 Date of discharge: 03/09/19 Attending physician: ZITA MARTINEZ Primary care physician: ZITA MARTINEZ Hospitalization Reason for admission: active labor Delivery: Procedure: repeat low transverse Episiotomy: none Incision: normal, dry, intact Other procedures: none complications: none Discharge diagnosis: IUP at term delivered Condition at discharge: Good Disposition: DC-01 TO HOME OR SELFCARE Plan - Discharge Medications Prescriptions: Ferrous Sulfate [Feosol 325 MG tab] 325 mg PO BID #30 tablet Ibuprofen [Motrin] 600 mg PO Q8H PRN #30 tablet PRN Reason: Pain oxyCODONE /ACETAMINOPHEN [Percocet 5/325] 1 tab PO Q6HR PRN #30 tablet PRN Reason: Pain - Provider Discharge Summary Activity: routine, no sex for 6 weeks, no heavy lifting 4 weeks, no strenuous exercise Diet: routine Instructions: routine Additional instructions: [] Smoking cessation referral if applicable(refer to patient education folder for contact #) [] Refer to [facility]'s [facility] Booklet Call your doctor immediately for: * Fever > 100.5 * Heavy vaginal bleeding ( >1 pad per hour) * Severe persistent headache * Shortness of breath * Reddened, hot, painful area to leg or breast * Drainage or odor from incision. * Keep incision clean and dry at all times and follow doctor's instructions regarding bathing/showering - Follow up plan Follow up: ZITA MARTINEZ MD [Primary Care Provider] - 14 Days (Call to schedule appointment.)
[2019-03-08] MEDS ORDERED: XYLOCAINE TOPICAL 2% 5ML TP PRN (09:00)
[2019-03-08] MEDS: FEOSOL PO SCH (10:05)
[2019-03-08] MEDS: PRENATAL VITAMIN PO SCH (10:05)
--- NOTE | 2019-03-08 12:37 | Event Note ---
Date: 03/08/19 S: Patient is experiencing chest pain since 1145. Feels like pressure on sternum. Some difficulty breathing. Reports not feeling well, denies nausea, arm pain, jaw pain, parasthesias, cough. O: BP 126/80, heart rate 80 bpm, SpO2 98% Alert and oriented x4, visibly uncomfortable. No paleness or cyanosis Lungs CTAB Breasts filling Normal S1/S2, no murmur/click/rub/gallop. Bilateral radial pulses 2+. Trace bilateral lower extremity edema, no masses or areas of redness/warmth on legs. Abdomen soft, fundus firm 1fb above umbilicus, physiologically tender to palpation Oral mucosa pink and moist A: 23 yo post-op day 2 s/p repeat LTCS Likely heartburn, rule out PE Vital signs stable ECG: normal sinus rhythm, rate 92 bpm no abnormalities noted P: Administer Zantac and GI cocktail Chest xray and CT angiogram Monitor closely
[2019-03-08] MEDS ORDERED: ALUM-MAG HYDROX-SIMETH 200-200-20MG/5ML PO PRN (13:00)
--- NOTE | 2019-03-08 13:57 | XRay Report ---
CHEST 2 VIEWS INDICATION / CLINICAL INFORMATION: chest pain. COMPARISON: 03/21/2017 FINDINGS: SUPPORT DEVICES: None. HEART / MEDIASTINUM: No significant abnormality. LUNGS / PLEURA: No significant pulmonary or pleural abnormality. No pneumothorax. ADDITIONAL FINDINGS: No significant additional findings. IMPRESSION: 1. No acute findings. Signer Name: Oswaldo Laura MD Signed: 03/08/2019 1:53 PM Workstation Name: [id number]
[2019-03-08] MEDS ORDERED: LIDOCAINE VISCOUS 2% PO ONE (14:00)
[2019-03-08] MEDS ORDERED: LIDOCAINE VISCOUS 2% PO PRN (16:00)
[2019-03-08] MEDS: VALTREX PO SCH ×2 (16:14→23:20)
[2019-03-08] MEDS: PEPCID PO SCH ×2 (16:15→23:14)
[2019-03-08 19:27] LABS: Alanine Aminotransferase 13 units/L (7-56); Albumin 3.1 g/dL (3.9-5); BUN/Creatinine Ratio 6; Blood Urea Nitrogen 3 mg/dL (7-17); Hemolysis Index 1
[2019-03-08] MEDS: IBUPROFEN PO PRN (20:44)
[2019-03-08] MEDS: PERCOCET 5/325 PO PRN (20:44)
[2019-03-08] MEDS ORDERED: XYLOCAINE TOPICAL 2% 5ML TP ONE (20:59)
--- NOTE | 2019-03-08 22:58 | Cat Scan Report ---
CTA CHEST WITH IV CONTRAST INDICATION / CLINICAL INFORMATION: chest pain after surgery. TECHNIQUE: Axial CT images were obtained through the chest after injection of IV contrast. 3 plane MIP and/or 3D reconstructions were produced. All CT scans at this location are performed using CT dose reduction f or ALARA by means of automated exposure control. COMPARISON: None available. FINDINGS: PULMONARY ARTERIES: No pulmonary emboli. THORACIC AORTA: No significant abnormality. HEART: No significant abnormality. CORONARY ARTERIES: No significant calcification. PLEURA: No pleural effusion. No pneumothorax. LYMPH NODES: No significant adenopathy. LUNGS: No acute air space or interstitial disease. ADDITIONAL FINDINGS: None. UPPER ABDOMEN: No acute findings. SKELETAL STRUCTURES: No significant osseous abnormality. IMPRESSION: 1. No CT evidence for pulmonary embolism. 2. No acute findings. Signer Name: Dom Balderrama MD Signed: 03/08/2019 10:54 PM Workstation Name: [id number]
[2019-03-09] MEDS: NORCO 5/325 PO PRN (08:45)
[2019-03-09] MEDS: IBUPROFEN PO PRN (08:51)
[2019-03-09 09:24] VITALS: BP 136/82
[2019-03-09] MEDS: PRENATAL VITAMIN PO SCH (11:47)
[2019-03-09] MEDS: PEPCID PO SCH (11:47)
[2019-03-09] MEDS: FEOSOL PO SCH (11:47)
[2019-03-09] MEDS: VALTREX PO SCH (11:51)
== END 2019-03-09 15:00 | disposition home or self-care (01) | DRG 765 ==
LOC: APU 05:05 → OB 12:03
PROVIDERS: ADMIT Obstetrics & Gynecology; ATTEND Obstetrics & Gynecology
PROC: 10D00Z1 Extraction of Products of Conception, Low, Open Approach (ICD-10-PCS; principal; 2019-03-06)
PROC: 3E0234Z Introduction of Serum, Toxoid and Vaccine into Muscle, Percutaneous Approach (ICD-10-PCS; 2019-03-07)
DX: O34.211 Maternal care for low transverse scar from previous cesarean delivery (principal); O98.52 Other viral diseases complicating childbirth; O75.82 Onset (spontaneous) of labor after 37 completed weeks of gestation but before 39 completed weeks gestation, with delivery by (planned) cesarean section; O69.81X0 Labor and delivery complicated by cord around neck, without compression, not applicable or unspecified; B00.9 Herpesviral infection, unspecified; O99.214 Obesity complicating childbirth; E66.9 Obesity, unspecified; O99.02 Anemia complicating childbirth; D64.9 Anemia, unspecified; Z37.0 Single live birth; Z3A.39 39 weeks gestation of pregnancy; Z79.899 Other long term (current) drug therapy; Z23 Encounter for immunization
CPT/HCPCS: 36415; 71046; 71275; 80053; 85014; 85018; 85025; 86850; 86900; 86901; 90471; 90715; 93005; 93010; G0378; C9250; J0690; J1885; J2270; J2405; J2590; J2765; J3490; J7120; J7121; Q9967

== ENCOUNTER 2020-04-08 17:26 | Outpatient (CLI) | payer MEDICAID ==
[2020-04-08] MEDS ORDERED: LACTATED RINGERS 1,000 ML IV SCH (19:00)
[2020-04-08 19:23] LABS: Hematocrit 31.3 % (30.3-42.9); Hemoglobin 10.6 gm/dl (10.1-14.3); Mean Corpuscular HGB Conc 34 % (30-34); Mean Corpuscular Volume 82 fl (79-97); Platelet Count 285 K/mm3 (140-440); Red Blood Count 3.79 M/mm3 (3.65-5.03); Red Cell Distribution Width 14.9 % (13.2-15.2)
[2020-04-08 19:24] LABS: Bacteria,Urine 2+ /HPF (Negative); Bilirubin,Urine NEG (Negative); Blood,Urine NEG (Negative); Color,Urine Yellow (Yellow); Protein,Urine <15 mg/dL mg/dL (Negative)
[2020-04-08 19:33] LABS: Alanine Aminotransferase 9 units/L (7-56)
[2020-04-08 19:37] VITALS: BP 113/64
== END 2020-04-08 19:51 | disposition home or self-care (01) ==
LOC: TRG 17:26 → APU 17:28 → TRG 19:51
PROVIDERS: ATTEND Obstetrics & Gynecology
DX: O26.893 Other specified pregnancy related conditions, third trimester (principal); R51 Headache; M79.89 Other specified soft tissue disorders; O47.03 False labor before 37 completed weeks of gestation, third trimester; Z3A.33 33 weeks gestation of pregnancy
CPT/HCPCS: 36415; 59025; 81001; 82565; 83615; 84450; 84460; 84550; 85027; 96360; 96361; J7120

== ENCOUNTER 2020-05-22 00:37 | Inpatient (IN) | payer MEDICAID ==
[2020-05-22] MEDS ORDERED: LACTATED RINGERS 1,000 ML IV ONE (01:54)
[2020-05-22 03:51] LABS: Basophils % (Auto) 0.4 % (0.0-1.8); Eosinophils # (Auto) 0.1 K/mm3 (0.0-0.4); Hematocrit 31.3 % (30.3-42.9); Hemoglobin 10.1 gm/dl (10.1-14.3); Lymphocytes # (Auto) 2.4 K/mm3 (1.2-5.4); Lymphocytes % (Auto) 31.5 % (13.4-35.0); Mean Corpuscular HGB Conc 32 % (30-34); Mean Corpuscular Volume 83 fl (79-97); Monocytes # (Auto) 0.4 K/mm3 (0.0-0.8); Monocytes % (Auto) 5.7 % (0.0-7.3); Platelet Count 307 K/mm3 (140-440); Red Blood Count 3.76 M/mm3 (3.65-5.03); Red Cell Distribution Width 17.1 % (13.2-15.2)
[2020-05-22] MEDS ORDERED: LACTATED RINGERS 1,000 ML ONE (05:24)
[2020-05-22] MEDS ORDERED: BICITRA ORAL LIQD 30ML PO ONE (05:27)
[2020-05-22] MEDS ORDERED: METOCLOPRAMIDE 10 MG/2 ML INJ IV ONE (05:27)
[2020-05-22] MEDS ORDERED: FAMOTIDINE 20 MG/2 ML INJ IV ONE (05:27)
--- NOTE | 2020-05-22 05:27 | History and Physical Report ---
History of Present Illness Date of examination: 05/22/20 Date of admission: May 22, 2020 Chief complaint: Contractions History of present illness: 24-year-old -0-2-2 at 40+0 weeks who presents with irregular uterine contractions. The patient has a history of a previous delivery x2. She had been scheduled for a repeat delivery however she declined and had decided to pursue a trial of labor despite being counseled to the contrary. The risk involved of attempting a trial of labor after 2 previous C-sections was extensively explained to the patient. The patient was given the option of proceeding with a repeat delivery or transferring her care to another provider. The patient has elected to proceed with a repeat delivery. She denies leakage of fluid or vaginal bleeding. A biophysical profile was performed with findings of 8 out of 8. 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 Social history: single - Obstetrical History Expected Date of Delivery: 05/22/20 Actual Gestation: 40 Week(s) 0 Day(s) : 5 Para: 2 Hx # Term Pregnancies: 2 Number of Pregnancies: 0 Spontaneous Abortions: 2 Induced : 0 Number of Living Children: 2 Medications and Allergies Allergies Allergy/AdvReac Type Severity Reaction Status Date / Time aloe vera AdvReac Severe Itching Verified 02/16/19 15:34 Home Medications Medication Instructions Recorded Confirmed Last Taken Type valACYclovir [Valtrex] 500 mg PO BID 12/27/18 12/27/18 12/27/18 History Ferrous Sulfate [Feosol 325 MG tab] 325 mg PO BID #30 tablet 03/06/19 Unknown Rx Ibuprofen [Motrin] 600 mg PO Q8H PRN #30 tablet 03/06/19 Unknown Rx oxyCODONE /ACETAMINOPHEN [Percocet 1 tab PO Q6HR PRN #30 tablet 03/06/19 Unknown Rx 5/325] Review of Systems All systems: negative Genitourinary: contractions, no vaginal bleeding, no leakage of fluid - Vital Signs Vital signs: Vital Signs Pulse Pulse Ox 108 H 98 05/22/20 01:18 05/22/20 01:18 Temp Pulse Resp BP Pulse Ox 97.4 F L 90 18 111/67 100 05/22/20 01:21 05/22/20 05:19 05/22/20 01:21 05/22/20 01:21 05/22/20 05:19 - Physical Exam Breasts: Positive: deferred Cardiovascular: Regular rate Lungs: Positive: Clear to auscultation Abdomen: Positive: normal appearance Results Result Diagrams: 05/22/20 02:40 Abnormal lab results 05/22/20 Range/Units 02:40 MCH 27 L (28-32) pg RDW 17.1 H (13.2-15.2) % All other labs normal. Assessment and Plan - Patient Problems (1) Previous delivery affecting Current Visit: Yes Status: Acute Plan to address problem: Will proceed with a repeat delivery and other indicated procedures
--- NOTE | 2020-05-22 05:34 | Ultrasound Report ---
US OB BPP wo non-stress, US OB limited INDICATION / CLINICAL INFORMATION: wellbeing. COMPARISON: None available. FINDINGS: Single, viable intrauterine in cephalic presentation. heart rate 144. Amniotic fluid volume is normal, with a fluid index of 15 cm. Biophysical profile: breathing movement: 2 movement: 2 posture and tone: 2 Amniotic fluid volume: 2 Total biophysical profile score: 8/8. IMPRESSION: 1. Viable, term intrauterine , with normal amniotic fluid volume. 2. Biophysical profile score of 8/8. Signer Name: Wisam Caraballo MD Signed: 05/22/2020 5:29 AM Workstation Name: [id number]
[2020-05-22] MEDS ORDERED: MORPHINE 4 MG/1 ML INJ IV PRN (05:38)
[2020-05-22] MEDS ORDERED: MAGNESIUM HYDROXIDE (MOM) ORAL LIQD UDC PO PRN (05:38)
[2020-05-22] MEDS ORDERED: KETOROLAC 30 MG/1 ML INJ IV PRN (05:38)
[2020-05-22] MEDS ORDERED: ACETAMINOPHEN 325 MG TAB PO PRN (05:38)
[2020-05-22] MEDS ORDERED: NALOXONE 0.4 MG/1 ML INJ IV PRN ×2 (05:38→06:07)
[2020-05-22] MEDS ORDERED: WITCH HAZEL/ GLYCERIN PAD TP PRN (05:38)
[2020-05-22] MEDS ORDERED: LANOLIN/ZINC/DIMETHICONE (LANSINOH) 7 GM TP PRN (05:38)
[2020-05-22] MEDS ORDERED: ONDANSETRON 4 MG/2 ML INJ IV PRN ×2 (05:38→06:07)
[2020-05-22] MEDS ORDERED: ceFAZolin/Water 2 GM/20 ML 2 GM/20 ML SYRINGE IV NR (06:00)
[2020-05-22] MEDS ORDERED: LACTATED RINGERS 1,000 ML IV SCH (06:00)
--- NOTE | 2020-05-22 06:04 | Anesthesia Day of Surgery ---
Anesthesia Day of Surgery - Day of Surgery Patient Examined: Yes Patient H&P Reviewed: Yes Patient is NPO: Yes Beta Blockers: No Cardiac Clearance: No Pulmonary Clearance: No Hernán's Test: N/A
[2020-05-22] MEDS ORDERED: HYDROmorphone 1 MG/1 ML INJ IV PRN (06:07)
--- NOTE | 2020-05-22 06:07 | Anesthesia Consultation ---
Anesthesia Consult and Med Hx Date of service: 05/22/20 - Airway Anesthetic Teeth Evaluation: Good ROM Head & Neck: Adequate Mental/Hyoid Distance: Adequate Mallampati Class: Class II Intubation Access Assessment: Good - Pulmonary Exam CTA: Yes - Cardiac Exam Cardiac Exam: RRR - Pre-Operative Health Status ASA Pre-Surgery Classification: ASA2 Proposed Anesthetic Plan: Spinal - Pre-Anesthesia Comment Pre-Anesthesia Comments: csectionx2 - Pulmonary Hx Smoking: Yes (stop last year) Hx Asthma: No Hx Respiratory Symptoms: No SOB: No COPD: No Home Oxygen Therapy: No Hx Pneumonia: No Hx Sleep Apnea: No - Cardiovascular System Hx Hypertension: No Hx Coronary Artery Disease: No Hx Heart Attack/AMI: No Hx Angina: No Hx Percutaneous Transluminal Coronary Angioplasty (PTCA): No Hx Cardia Arrhythmia: No Hx Pacemaker: No Hx Internal Defibrillator: No Hx Valvular Heart Disease: No Hx Heart Murmur: No Hx Peripheral Vascular Disease: No - Central Nervous System Hx Neuromuscular Disorder: No Hx Seizures: No CVA: No Hx Back Pain: Yes Hx Psychiatric Problems: No - Gastrointestinal Hx Ulcer: No Hx Gastroesophageal Reflux Disease: Yes - Endocrine Hx Renal Disease: No Hx End Stage Renal Disease: No Hx Cirrhosis: No Hx Liver Disease: No Hx Insulin Dependent Diabetes: No Hx Non-Insulin Dependent Diabetes: No Hx Thyroid Disease: No Hx Hypothyroidism: No Hx Hyperthyroidism: No - Hematic Hx Anemia: Yes Hx Sickle Cell Disease: No - Other Systems Hx Alcohol Use: Yes Hx Substance Use: No Hx Cancer: No Hx Obesity: Yes
[2020-05-22] MEDS ORDERED: ceFAZolin/STERILE WATER 2 GM/20 ML SYRINGE IV ONE (06:45)
[2020-05-22] MEDS ORDERED: LIDOCAINE MPF (2%) 20 MG/1 ML VIAL 5 ML ONE (06:57)
[2020-05-22] MEDS ORDERED: DEXMEDETOMIDINE 200 MCG/2 ML VIAL IV ONE (06:58)
[2020-05-22] MEDS ORDERED: ONDANSETRON 4 MG/2 ML INJ ONE (06:58)
[2020-05-22] MEDS ORDERED: OXYTOCIN DRIP 30,000 MILLIUNITS/500 ML BAG IV ONE (07:11)
--- NOTE | 2020-05-22 07:55 | Procedure Note ---
OB Delivery Note - Delivery Date of Delivery: 05/22/20 Surgeon: DEDRICK BRIGHT Estimated blood loss: other (800 mL) - Section Preop diagnosis: repeat Postop diagnosis: same section procedure: section, repeat low transverse Disposition: PACU Complications: other (Extensive abdominal adhesions) - A at 1 minute: 7 at 5 minutes: 8 Infant Gender: Female (Weight 7 pounds 15 ounces)
--- NOTE | 2020-05-22 08:01 | Operative Report ---
Operative Report Operative Report: Date of surgery: May 22, 2020 Preoperative diagnosis: at 40+0 weeks; previous delivery Postoperative diagnosis: Same as above; pelvic adhesions Procedure: Repeat low-transverse delivery and lysis of adhesions Surgeon: Gavi Tobar M.D. Anesthesia: Regional Estimated blood loss: 800 mL IV fluids 1200 mL Urine output: 150 mL Findings: Liveborn female with Apgars of 7 and 8 weight 7 pounds 15 ounces Indications: 24-year-old -0-2-2 at 40+0 weeks who presents with a history of previous delivery x2. The patient presents with findings of irregular uterine contractions. The patient is not a candidate for vaginal delivery. Procedure: The patient was taken to the operating room and given regional anesthesia without complication. She was prepped and draped in a normal sterile fashion. A Pfannenstiel skin incision was made down to layer the fascia which was nicked in the midline extended laterally with the Bovie cautery. The superior aspect of the rectus fascia was grasped with Addie clamps x2 and the rectus muscles off sharply. This was done in inferior fashion as well. The rectus fascia was densely adherent to the rectus muscle. The rectus muscle midline and peritoneum entered bluntly. There were multiple adhesions in the lower uterine segment and the anterior aspect of the uterus to the anterior abdominal wall. Lysis of adhesions had to be performed in order to facilitate access to the lower uterine segment. Transection of the rectus muscle also had to be performed to improve visualization. A bladder blade was placed. The vesicouterine peritoneum was then entered sharply with Metzenbaum scissors. The vesicouterine peritoneum was adherent and a proper bladder flap could not be created secondary to the adhesions. A low transverse uterine incision was then made and extended digitally. There was clear fluid upon entry into the uterine cavity. The head was delivered through the incision with fundal pressure. A nuchal cord x1 was manually reduced. The cord was clamped and cut x2 and infant was passed off to pediatrics. The placenta was then manually extracted. The uterus could not be exteriorized secondary to the dense adhesions. The uterus had to be repaired in situ. The uterine incision was then closed in a running locked fashion with 0 Vicryl additional imbricating stitch was applied for 2 layer closure. The posterior cul-de-sac was then copiously irrigated. The uterus was replaced back into the abdomen and pelvis were the gutters were then irrigated. Hemo-blast was placed over the uterine incision. The fascia was then closed with 0 Vicryl in a running fashion. The skin was then reapproximated with 3-0 Monocryl on a Francisco needle subcuticular fashion. Steri-Strips to place across the incision and a Crede procedure was performed at the end of the surgery. A pressure dressing was applied to the incision. The surgery productive of a liveborn female infant with Apgars of 7 and 8 weight 7 pounds 15 ounces. The patient was taken to the recovery room in stable condition. All sponge laps and needle counts correct x2.
[2020-05-22] MEDS ORDERED: KETOROLAC 30 MG/1 ML INJ ONE (08:02)
[2020-05-22] MEDS ORDERED: LACTATED RINGERS 2,000 ML ONE (08:03)
--- NOTE | 2020-05-22 09:51 | Progress Note ---
Spinal Anesthesia Block - Spinal Anesthesia Block Start Time: 06:25 Stop Time: 06:59 Performed by:: PAWAN SANCHEZ Procedure: Patient IDed, H&P reviewed, all questions and concerns were answered, and consent was signed. Timeout was performed at bedside. Patient in sitting position. Sterile prep and drape was performed. [7] ml of 1% lidocaine skin wheal at L[3]- L [4] and L4-5. Needle introducer advanced. 25 gauge spinal needle advanced. 3 attempt by SRNA, NO CSF. Clear, free flowing CSF after 2 attempts by LACEMAKER. negative blood, negative paresthesia. Spinal dose given. All needles removed. Patient tolerated procedure.
[2020-05-22] MEDS: D5W/LACTATED RINGERS 1,000 ML IV SCH ×2 (12:23→20:37)
[2020-05-22 18:22] LABS: Hematocrit 31.1 % (30.3-42.9); Hemoglobin 9.7 gm/dl (10.1-14.3)
[2020-05-22] MEDS: oxyCODONE /ACETAMINOPHEN 5-325MG TAB PO PRN (20:38)
[2020-05-23] MEDS: oxyCODONE /ACETAMINOPHEN 5-325MG TAB PO PRN ×3 (02:02→20:43)
[2020-05-23] MEDS: IBUPROFEN 800 MG TAB PO PRN ×3 (05:49→16:40)
--- NOTE | 2020-05-23 07:50 | Progress Note ---
Assessment and Plan A: POD#1 s/p repeat , lysis of adhesions at term, morbid obesity P: Routine postop advances Subjective - Subjective Date of service: 05/23/20 Principal diagnosis: s/p repeat , lysis of adhesions Interval history: No overnight events Patient reports: appetite normal, voiding normally, pain well controlled, flatus, ambulating normally, no bowel movement : doing well Objective - Vital Signs Latest vital signs: Vital Signs Temp Pulse Resp BP BP Pulse Ox 05/23/20 06:49 18 05/23/20 05:49 18 05/23/20 03:02 18 05/23/20 02:02 18 05/23/20 01:00 18 05/23/20 00:58 98.5 F 88 20 113/65 95 05/23/20 00:00 18 05/22/20 21:38 18 05/22/20 20:55 98.4 F 95 H 20 124/76 100 05/22/20 20:38 18 05/22/20 17:03 98.0 F 75 18 137/70 100 05/22/20 09:45 97.7 F 87 18 106/55 97 05/22/20 09:07 97.5 F L 72 20 95/50 97 05/22/20 08:50 74 18 99/46 97 05/22/20 08:35 73 20 101/47 97 05/22/20 08:20 77 20 97/45 98 05/22/20 08:15 73 20 97/45 98 05/22/20 08:10 73 18 106/36 97 05/22/20 08:05 97.5 F L 78 13 108/45 Intake and Output 05/22/20 05/23/20 05/23/20 22:59 06:59 14:59 Intake Total 1240 360 Output Total 1200 1800 Balance 40 -1440 Intake: IV 1000 D5lr 1,000 ml @ 125 mls/ 1000 hr IV DIRECT [facility] Rx#: [id number] Intake, Free Water 240 360 Output: Urine 1200 1800 Indwelling Catheter 1200 Void 1800 Other: Total, Output Amount 300 700 # Voids Void 1 - Exam Breasts: Present: deferred Abdomen: Present: soft, distention (mild ) Uterus: Present: fundal height at umbilicus Extremities: Present: edema (trace) Incision: Present: dressed - Labs Labs: Abnormal lab results 05/22/20 Range/Units 17:52 Hgb 9.7 L (10.1-14.3) gm/dl
[2020-05-24] MEDS: IBUPROFEN 800 MG TAB PO PRN ×2 (04:12→23:08)
[2020-05-24] MEDS: oxyCODONE /ACETAMINOPHEN 5-325MG TAB PO PRN ×3 (09:35→22:21)
--- NOTE | 2020-05-24 11:55 | Consultation ---
History of Present Illness - Reason for Consult Consult date: 05/24/20 Reason for consult: MHE Requesting physician: DEDRICK BRIGHT - Chief Complaint Chief complaint: Contractions - History of Present Psychiatric Illness Per OBGYN Nurse: Patient completed Wenden depression scale and score 24/30. spoke with patient who reported that she has a history of depres frank and severe anxiety, however she did not disclose information to provider during . Notified Dr. 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 Hamilton scale completed. will monitor patient. Advised MAT CUTTER for baby-Veronica of clients current mental health status. PSYCH HPI Patient is a 24-year-old single with children, unemployed lives with partner -Swedish female with past psychiatric history of major depression and no significant past medical history who was admitted to the [employer] [facility] services for delivery and consequently is called 24 out of 30 on the depression scale prompting psychiatric consult for mental health evaluation. Patient reports she does not really consider herself a happy or sad person at the moment, she feels neutral, she denies acute suicidal thoughts or homicidal thoughts. Patient endorses that she was worse of mentally in the past but after cutting ties with some toxic relationships mostly family members including mom and sibling and she started getting better also endorses significant support from a current partner but he does not understand her mentally as well as what she is dealing with. Patient reports she just had a baby last year and was not really expecting to have another baby this year which has caused her to feel temporarily emotionally down but she denies any thoughts of harming herself or harming the baby. PAST PSYCHIATRIC HISTORY Diagnoses: MDD Suicide attempts or Self-harm behavior: Yes Prior psychiatric hospitalizations: Yes Substance Abuse history: Alcohol and marijuana Previous psychiatric medications tried: Zoloft Outpatient treatment: yes non compliant PAST MEDICAL HISTORY: None Family Psychiatric History: None reported or documented SOCIAL HISTORY Marital Status: Single with children Living Arrangements: WIth partner Employment Status: unemployed Access to guns/weapons: none reported Education: college drop out History of Abuse: Emotional and verbal Legal History: REVIEW OF SYSTEMS Constitutional: Negative for weight loss ENT: Negative for stridor Respiratory: Negative for cough or hemoptysis All other systems reviewed and are negative MENTAL STATUS EXAMINATION General Appearance and Behavior: Age appropriate, poor/fair/good hygiene, we aring appropriate clothes, lying in bed, good/poor eye contact, cooperative/uncooperative polite/irritable with questioning. Cooperation: Participating/engaged, Withdrawn, Isolative, Threatening, Coop erative, Hostile and Guarded Psychomotor Behavior: Psychomotor agitation, psychomotor retardation, u nremarkable and within normal limits Mood: neutral Affect and affective range: flat Thought Process: Fluent/Logical Thought Content: Within reality Speech: Normal volume, Regular rate and rhythm Intellectual Functioning: Average Suicidal Ideation: Denies SI Homicidal Ideation: Denies HI Impulse Control: /Unimpaired Insight and Judgment: Normal insight and judgmen Memory: Normal Attention: Normal, Orientation: Alert, oriented, Assessment and Plan - Psychiatric problem (1) Hx of major depression Current Visit: Yes Status: Acute Treatment Plan restart zoloft at 25mg MEDICATIONS: Risks, benefits and alternatives of medications discussed with the patient, questions answered and consent obtained from patient. PSYCHOTHERAPY: Supportive psychotherapy provided MEDICAL: Per primary team DELIRIUM PRECAUTIONS: Please re-orient patient frequently, keep lights on during the day, and minimize benzodiazepines and opiates as these medications could worsen patient's confusion. 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 Please contact with any questions and/or concerns. Medications and Allergies Allergies Allergy/AdvReac Type Severity Reaction Status Date / Time aloe vera AdvReac Severe Itching Verified 02/16/19 15:34 Home Medications Medication Instructions Recorded Confirmed Last Taken Type valACYclovir [Valtrex] 500 mg PO BID 12/27/18 05/22/20 12/27/18 History Ferrous Sulfate [Feosol 325 MG tab] 325 mg PO BID #30 tablet 03/06/19 05/22/20 Unknown Rx Ibuprofen [Motrin] 600 mg PO Q8H PRN #30 tablet 03/06/19 05/22/20 Unknown Rx oxyCODONE /ACETAMINOPHEN [Percocet 1 tab PO Q6HR PRN #30 tablet 03/06/19 05/22/20 Unknown Rx 5/325] Ferrous Sulfate [Feosol 325 MG tab] 325 mg PO BID #60 tablet 05/23/20 Unknown Rx Ibuprofen [Motrin] 800 mg PO Q8HR PRN #30 tablet 05/23/20 Unknown Rx oxyCODONE /ACETAMINOPHEN [Percocet 1 tab PO Q6HR PRN #40 tablet 05/23/20 Unknown Rx 5/325] Active Meds: Active Medications Acetaminophen (Tylenol) 650 mg PO Q4H PRN PRN Reason: Fever >100.5/GOODEN Hydromorphone HCl (Dilaudid) 0.5 mg IV Q5M PRN PRN Reason: BREAK Last Admin: 05/22/20 17:21 Dose: 0.5 mg Documented by: Dextrose/Lactated Ringer's (D5lr) 1,000 mls @ 125 mls/hr IV DIRECT MANNY Last Admin: 05/22/20 20:37 Dose: 125 mls/hr Documented by: Ibuprofen (Ibuprofen) 800 mg PO Q6H PRN PRN Reason: Pain, Mild (1-3) Last Admin: 05/24/20 04:12 Dose: 800 mg Documented by: Ketorolac Tromethamine (Toradol) 30 mg IV Q6H PRN PRN Reason: Pain, Moderate (4-6) Stop: 05/27/20 05:37 Last Admin: 05/22/20 13:21 Dose: 30 mg Documented by: Magnesium Hydroxide (Milk Of Magnesia) 30 ml PO QHS PRN PRN Reason: Constip Unrelieved By Senna Morphine Sulfate (Morphine) 4 mg IV Q4H PRN PRN Reason: Pain , Severe (7-10) Last Admin: 05/22/20 14:28 Dose: 4 mg Documented by: Multi-Ingredient Ointment (Lansinoh) 1 applic TP PRN PRN PRN Reason: dryness/cracking Naloxone HCl (Naloxone) 0.1 mg IV Q2MIN PRN PRN Reason: Res Rate </= 8 or 02 SAT < 92% Naloxone HCl (Naloxone) 0.2 mg IV Q2MIN PRN PRN Reason: Res Rate </= 8 or 02 SAT < 92% Ondansetron HCl (Zofran) 4 mg IV Q8H PRN PRN Reason: Nausea And Vomiting Oxycodone/Acetaminophen (Percocet 5/325) 2 tab PO Q4H PRN PRN Reason: Pain, Moderate (4-6) Last Admin: 05/24/20 09:35 Dose: 2 tab Documented by: [place] Celia/Glycerin (Tucks Pad) 1 each TP PRN PRN PRN Reason: Hemorrhoids/cleansing/soothing Mental Status Exam - Vital signs Last Vital Signs Temp 97.8 F 05/24/20 08:25 Pulse 83 05/24/20 08:25 Resp 20 05/24/20 08:25 BP 117/63 05/24/20 08:25 Pulse Ox 96 05/24/20 01:47 Results Result Diagrams: 05/22/20 17:52 All other labs normal. Assessment and Plan - Psychiatric problem (1) Hx of major depression Current Visit: Yes Status: Acute
--- NOTE | 2020-05-24 15:26 | Progress Note ---
Assessment and Plan Postop day 2 status post L TCS repeat. Patient stable and doing well. Patient was seen by psychiatrist this morning who agreed with depression diagnosis and restarted patient on Zoloft. He also advised patient take Zoloft when she is discharged from the hospital. Patient has no other complaints on today. She is ambulating tolerating a regular diet and passing flatus. She does complain of some mild back pain. We will plan for discharge home tomorrow which is postop day 3. Subjective - Subjective Date of service: 05/24/20 Principal diagnosis: s/p repeat , lysis of adhesions Interval history: Pt reported a history of depression to nursing staff and was seen by Psych this morning. He suggested restart of Zoloft 25mg. Pt otherwise stable. Will plan for discharge on tomorrow Patient reports: appetite normal, voiding normally, pain well controlled, ambulating normally [place]: doing well Objective - Vital Signs Latest vital signs: Vital Signs Temp Pulse Resp BP BP Pulse Ox 05/24/20 08:25 97.8 F 83 20 117/63 05/24/20 04:12 18 05/24/20 01:47 98.1 F 86 16 97/60 96 05/23/20 20:43 18 05/23/20 16:30 97.9 F 90 18 125/69 98 Intake and Output 05/24/20 05/24/20 05/24/20 06:59 14:59 22:59 Intake Total 600 120 Balance 600 120 Intake: Oral 120 Intake, Free Water 600 Other: Total, Intake Amount 120 # Voids Void 1 1 - Exam Lungs: Present: Clear to auscultation, Normal air movement Abdomen: Present: normal appearance, soft Extremities: Present: normal Incision: Present: normal, dry, intact
--- NOTE | 2020-05-24 15:27 | Discharge Summary ---
Providers - Providers Date of Admission: 05/22/20 05:38 Date of discharge: 05/25/20 Attending physician: DEDRICK BRIGHT 05/24/20 10:06 psychiatry consult [Consult to Mental Health] [CONS] Routine Reason For Exam: score 24/30 post depresion scale. Primary care physician: DEDRICK BRIGHT Hospitalization Reason for admission: section Delivery: Procedure: repeat low transverse Incision: normal, dry, intact Discharge diagnosis: IUP at term delivered baby: female Condition at discharge: Good Disposition: [id number] TO HOME OR SELFCARE Plan - Discharge Medications Prescriptions: Ferrous Sulfate [Feosol 325 MG tab] 325 mg PO BID #60 tablet Melatonin [Melatonin 10MG CAP] 10 mg PO QHS #30 capsule Ibuprofen [Motrin] 800 mg PO Q8HR PRN #30 tablet PRN Reason: Pain, Moderate (4-6) oxyCODONE /ACETAMINOPHEN [Percocet 5/325] 1 tab PO Q6HR PRN #40 tablet PRN Reason: Pain Sertraline [Zoloft] 25 mg PO QDAY #30 tab - Provider Discharge Summary Activity: routine, no sex for 6 weeks, no heavy lifting 4 weeks, no strenuous exercise Diet: routine Instructions: routine Additional instructions: [] Smoking cessation referral if applicable(refer to patient education folder for contact #) [] Refer to [facility]'s [facility] Booklet Call your doctor immediately for: * Fever > 100.5 * Heavy vaginal bleeding ( >1 pad per hour) * Severe persistent headache * Shortness of breath * Reddened, hot, painful area to leg or breast * Drainage or odor from incision. * Keep incision clean and dry at all times and follow doctor's instructions regarding bathing/showering - Follow up plan Follow up: DEDRICK BRIGHT MD [Primary Care Provider] - 14 Days
[2020-05-25] MEDS: oxyCODONE /ACETAMINOPHEN 5-325MG TAB PO PRN (04:02)
[2020-05-25] MEDS: IBUPROFEN 800 MG TAB PO PRN (10:04)
[2020-05-25 15:47] VITALS: BP 127/73
== END 2020-05-25 15:30 | disposition home or self-care (01) | DRG 766 ==
LOC: TRG 00:37 → APU 00:39 → TRG 05:38 → APU 05:38 → OB 09:47
PROVIDERS: ADMIT Obstetrics & Gynecology; ATTEND Obstetrics & Gynecology
PROC: 10D00Z1 Extraction of Products of Conception, Low, Open Approach (ICD-10-PCS; principal; 2020-05-22)
DX: O34.211 Maternal care for low transverse scar from previous cesarean delivery (principal); Z37.0 Single live birth; Z3A.40 40 weeks gestation of pregnancy; O99.62 Diseases of the digestive system complicating childbirth; K21.9 Gastro-esophageal reflux disease without esophagitis; K66.0 Peritoneal adhesions (postprocedural) (postinfection); O99.214 Obesity complicating childbirth; E66.01 Morbid (severe) obesity due to excess calories; O99.344 Other mental disorders complicating childbirth; F32.9 Major depressive disorder, single episode, unspecified
CPT/HCPCS: 36415; 76815; 76819; 85014; 85018; 85025; 86592; 86850; 86900; 86901; G0378; J0690; J1170; J1885; J2270; J2405; J2590; J2765; J3490; J7120; J7121; U0003-CS